=== PATIENT | female | born 1970 | race Caucasian/White ===

== ENCOUNTER 2017-04-11 10:31 | Emergency (ER) | payer BC, SELFPAY | END 2017-04-11 11:10 | disposition home or self-care (01) | LOC: MADERS 10:31 | DX: H60.93 Unspecified otitis externa, bilateral (principal); F41.9 Anxiety disorder, unspecified; F32.9 Major depressive disorder, single episode, unspecified; Z79.899 Other long term (current) drug therapy | CPT/HCPCS: 99282 ==

== ENCOUNTER 2023-05-22 18:24 | Emergency (ER) | payer OTHER ==
[2023-05-22] MEDS ORDERED: Lidocaine 1% (PF) 30 ML VIAL ONE (18:50)
[2023-05-22] MEDS ORDERED: Bacitracin 1 PK ONE (18:50)
[2023-05-22] MEDS ORDERED: Acetaminophen 500 MG TAB ONE (18:50)
[2023-05-22] MEDS ORDERED: Boostrix 0.5 ML (Tdap) VIAL (>/=7 yrs of age) ONE (18:50)
[2023-05-22] MEDS ORDERED: Ibuprofen 800 MG TAB ONE (18:50)
[2023-05-22] MEDS ORDERED: Cephalexin 500 MG CAP ONE (18:50)
[2023-05-22] MEDS ORDERED: Lidocaine 1% w/Epinephrine 1:100K 20 ML VIAL ONE (19:13)
[2023-05-22] MEDS ORDERED: traMADol HCl 50 MG TAB ONE (20:32)
== END 2023-05-22 20:45 | disposition home or self-care (01) ==
LOC: MADERS 18:24
DX: S81.011A Laceration without foreign body, right knee, initial encounter (principal); I10 Essential (primary) hypertension; E78.00 Pure hypercholesterolemia, unspecified; W01.0XXA Fall on same level from slipping, tripping and stumbling without subsequent striking against object, initial encounter; Y92.39 Other specified sports and athletic area as the place of occurrence of the external cause; Z23 Encounter for immunization; Z79.899 Other long term (current) drug therapy
CPT/HCPCS: 12004; 90471; 90715; J2001